=== PATIENT | female | born 1975 | race Caucasian/White ===

== ENCOUNTER 2018-10-07 22:09 | Emergency (ER) | payer SELFPAY ==
--- NOTE | 2018-10-15 11:38 | ER Physician Documentation ---
DATE OF SERVICE: 10/07/2018 HISTORY OF PRESENT ILLNESS: This patient presents to the Emergency Room with onset x 2 days of body spasms, anxiety and aches, body aches. This patient does have a history of panic attacks and anxiety. This patient denies any history of trauma. The patient denies headaches, neck pain, chest pain, shortness of breath, abdominal pain, nausea, vomiting, diarrhea, constipation, weakness, dizziness, paresthesias, vertigo or any gait changes. The patient is eating and urinating well. The patient last urinated about a half hour prior to admission. PAST MEDICAL HISTORY: Per nurses' notes. MEDICATIONS: Per nurses' notes. ALLERGIES: Per nurses' notes. REVIEW OF SYSTEMS: Otherwise noncontributory. PHYSICAL EXAMINATION: GENERAL: Found the patient to be anxious, but in no acute distress, alert and oriented x 3. VITAL SIGNS: The patient is afebrile. Vital signs are stable. HEENT: Unremarkable and negative. Pupils are equal, round and reactive to light. Fundi benign. Extraocular muscles and TMJs within normal limits. NECK: Supple. No cervical tenderness. No meningeal signs. CARDIOVASCULAR: Regular rate and rhythm. LUNGS: Clear with good breath sounds bilaterally. ABDOMEN: Soft, nontender, normoactive bowel sounds. No pulsatile masses. EXTREMITIES: No edema, clubbing or cyanosis. NEUROLOGIC: Showed no focal signs. MENTAL STATUS: Revealed the patient was anxious at times, has no suicidal ideations. Mood and affect is stable and there is no psychomotor agitation and no psychomotor retardation. The patient had basically a normal mental status exam. HOSPITAL COURSE: The patient improved and was asymptomatic upon discharge. Thus, the patient was discharged with aftercare instructions given. The patient is to return to the Emergency Room as needed if existing signs and symptoms should reoccur and/or get worse and/or any other new signs and symptoms should occur, refer to psychiatrist as soon as possible, refer to Internal Medicine doctor as soon as possible. Aftercare instructions given for all above diagnoses. The patient is to return to the Emergency Room as needed if concerned. Otherwise, follow up care with primary physician in one day or as needed. DISCHARGE DIAGNOSES: Anxiety reaction, anxiousness, myalgias, body spasms. JOB# [id number]
== END 2018-10-07 23:40 | disposition home or self-care (01) ==
LOC: ER 22:09
DX: F41.1 Generalized anxiety disorder (principal); M79.10 Myalgia, unspecified site
CPT/HCPCS: 99284; 96372; J2060; Z7502

== ENCOUNTER 2018-10-10 00:09 | Emergency (ER) | payer SELFPAY ==
--- NOTE | 2018-10-10 00:44 | ED Physician Chart ---
ED Chief Complaint/HPI - Patient Information Date Seen:: 10/10/18 Time Seen:: 00:39 Chief Complaint:: leg pains History of Present Illness:: 43 yr old female with hx of fall laminectmy and hx of head trauma with uncontrollable leg twitcings Allergies:: Allergies Allergy/AdvReac Type Severity Reaction Status Date / Time corn Allergy Verified 10/07/18 22:28 legumes Allergy Verified 10/07/18 22:28 oats Allergy Verified 10/07/18 22:28 peanut Allergy Verified 10/07/18 22:28 sesame seed Allergy Verified 10/07/18 22:28 shrimp Allergy Verified 10/07/18 22:28 soy Allergy Verified 10/07/18 22:28 Vitals:: Vital Signs - 8 hr 10/10/18 00:11 Temp 98.7 F HR 93 RR 19 BP 113/85 O2 Sat % 97 ED Review of Systems - Review of Systems General/Constitutional: No fever, No chills, No weight loss, No weakness, No diaphoresis, No edema, No loss of appetite Skin: No skin lesions, No rash, No bruising Head: No headache, No light-headedness Eyes: No loss of vision, No pain, No diplopia ENT: No earache, No nasal drainage, No sore throat, No tinnitus Neck: No neck pain, No swelling, No thyromegaly, No stiffness, No mass noted Cardio Vascular: No chest pain, No palpitations, No PND, No orthopnea, No edema Pulmonary: No SOB, No cough, No sputum, No wheezing GI: No nausea, No vomiting, No diarrhea, No pain, No melena, No hematochezia, No constipation, No hematemesis G/U: No dysuria, No frequency, No hematuria Musculoskeletal: No bone or joint pain, No back pain, No muscle pain Endocrine: No polyuria, No polydipsia Psychiatric: No prior psych history, No depression, No anxiety, No suicidal ideation Hematopoietic: No bruising, No lymphadenopathy Allergic/Immuno: No urticaria, No angioedema Neurological: No syncope, No focal symptoms, No weakness, No paresthesia, No headache, No seizure, No dizziness, No confusion, No vertigo, Other (leg twitching) ED Past Medical History - Past Medical History Past Medical History: Other (head trauma fall) Surgical History: other (laminectomy) Family Medical History - Family Member Mother History Unknown: Yes ED Physical Exam - Physical Examination General/Constitutional: Awake Other Gen/Cons comments:: leg twitching Head: Atraumatic Eyes: Lids, conjuctiva normal Skin: Nl inspection Neck: Nontender Respiratory: Nl effort/Exclusion Cardio Vascular: RRR GI: No tenderness/rebounding/guarding Other Extremities comments:: leg twitching Neuro/Psych: Alert/oriented Other:: lumbar laminectomy scar ED Assessment - Assessment General Assessment: leg twitchings ED Septic Shock - . Is Septic Shock (SBP<90, OR Lactate>4 mmol\L) present?: No - <6hrs of presentation: Vital Signs: Vital Signs - 8 hr 10/10/ 00:11 Temp 98.7 F HR 93 RR 19 BP 113/85 O2 Sat % 97 ED Reassessment (Disposition) - Reassessment Reassessment:: leg twitchings - Diagnosis Diagnosis:: leg twitchings - Aftercare/Follow up Instructions Aftercare/Follow-Up Instructions:: Counseled pt regarding lab results/diagnosis & need follow up - Patient Disposition Discharge/Transfer:: Home Condition at Disposition:: Stable
[2018-10-10] MEDS ORDERED: Sodium Chloride 0.9% 1,000 ML IV ONE (00:52)
[2018-10-10 00:57] LABS: % BASOPHILS 1.2 % (0.0-2.0); % EOSINOPHILS 5.4 % (0.0-5.0); % LYMPHOCYTES 32.1 % (20.0-50.0); % MONOCYTES 7.9 % (2.0-10.0); % NEUTROPHILS 53.4 % (40.0-80.0); BASOPHILE ABSOLUTE 0.1 Th/cumm (0-0.2); EOSINOPHILE ABSOLUTE 0.4 Th/cmm (0.1-0.4); HEMATOCRIT 36.9 % (41.0-60); HEMOGLOBIN 12.5 gm/dL (12-16); LYMPHOCYTE ABSOLUTE 2.3 Th/cmm (1.5-3.0); MEAN CELL VOLUME 89.3 fl (81-100); MEAN CORPUSCULAR HEMOGLOBIN 30.3 pg (27.0-31.0); MONOCYTE ABSOLUTE 0.6 Th/cmm (0.3-1.0); NEUTROPHILE ABSOLUTE 3.9 Th/cmm (1.8-8.0); PLATELET COUNT 414 Th/cmm (150-400); RED BLOOD COUNT 4.13 Mil/cmm (3.80-5.10); RED CELL DISTRIBUTION WIDTH 14.1 % (11.5-20.0); WHITE BLOOD COUNT 7.3 Th/cmm (4.8-10.8)
[2018-10-10 01:34] LABS: ALBUMIN 4.3 gm/dL (3.7-5.3); ALKALINE PHOSPHATASE 55 U/L (34-104); ANION GAP 11.6 (7.0-16.0); BILIRUBIN,TOTAL 0.3 mg/dL (0.3-1.0); BUN - UREA NITROGEN 19 mg/dL (7-25); CALCIUM SERUM 9.2 mg/dL (8.6-10.3); CARBON DIOXIDE 26.6 mEq/L (21.0-31.0); CHLORIDE 107 mEq/L (98-107); CREATININE - SERUM 0.7 mg/dL (0.6-1.2); CREATININE KINASE 93 U/L (30-223); GFR AFRICAN-AMERICAN > 60.0 ml/min (>90); GFR NON AFRICAN-AMERICAN > 60.0 ml/min; GLUCOSE 105 mg/dL (70-105); POTASSIUM SERUM 4.2 mEq/L (3.5-5.1); SGOT 10 U/L (13-39); SGPT/ALT 9 U/L (7-52); SODIUM SERUM 141 mEq/L (136-145); TOTAL PROTEIN,SERUM 6.5 gm/dL (6.0-8.3)
[2018-10-10 01:47] LABS: URINE SOURCE CLEAN C
[2018-10-10 01:50] LABS: URINE BILIRUBIN NEGATIVE (NEGATIVE); URINE BLOOD MODERATE (NEGATIVE); URINE GLUCOSE (UA) NEGATIVE (NEGATIVE); URINE KETONE NEGATIVE (NEGATIVE); URINE LEUKOCYTE ESTERASE NEGATIVE (NEGATIVE); URINE MICROSCOPIC INDICATED? YES; URINE NITRATE NEGATIVE (NEGATIVE); URINE PH 6.5 (4.6 - 8.0); URINE PROTEIN NEGATIVE (NEGATIVE); URINE UROBILINOGEN 0.2 E.U./dL (0.2 - 1.0)
[2018-10-10 01:51] LABS: URINE CLARITY SLIGHT HAZY (CLEAR); URINE COLOR YELLOW
[2018-10-10 02:06] LABS: URINE RBC 0-2 /hpf (0-5)
[2018-10-10 02:07] LABS: URINE BACTERIA NONE SEEN /hpf (NONE SEEN); URINE EPITHELIAL CELLS RARE /lpf (FEW); URINE WBC NONE SEEN /hpf (0-5)
== END 2018-10-10 02:32 | disposition home or self-care (01) ==
LOC: ER 00:09
DX: R25.2 Cramp and spasm (principal); M79.606 Pain in leg, unspecified; Z91.018 Allergy to other foods; Z91.010 Allergy to peanuts; Z91.013 Allergy to seafood
CPT/HCPCS: 99283; 96372; 36415; 85025; 87086; 81001; 82550; 80053; J1885; J7030; Z7502